=== PATIENT | female | born 2000 | race African-American/Black ===

== ENCOUNTER 2022-07-05 07:36 | Emergency (ER) | payer MEDICAID ==
[~2022-07-05] VITALS: Ht 137.2 cm; Wt 53.1 kg
[2022-07-05 08:56] LABS: BASOPHILS % 0.3 % (0.0-2.0); EOSINOPHILS % 1.5 % (0.0-5.0); HEMATOCRIT. 42.4 % (36.0-48.0); HEMOGLOBIN. 14.4 g/dL (12.0-16.0); LYMPHOCYTES % 25.5 % (20.0-50.0); MEAN CORPUSCULAR HEMOGLOBIN 30.2 pg (28.0-32.0); MEAN CORPUSCULAR VOLUME 89.2 fL (81.0-99.0); MEAN PLATELET VOLUME 7.2 fl (7.4-10.4); MONOCYTES % 4.7 % (2.0-8.0); PLATELET 441 x1000/uL (130-400); RED BLOOD CELL COUNT 4.75 mill/uL (4.2-5.4); RED CELL DISTRIBUTION WIDTH 13.4 % (11.6-14.6)
[2022-07-05 09:04] LABS: INR 1.3; PROTHROMBIN TIME 13.3 sec (9.6-11.0)
[2022-07-05 09:10] LABS: CHLORIDE 106 mEq/L (98-107)
[2022-07-05 09:13] LABS: HCG SCREEN NEGATIVE
[2022-07-05 09:28] LABS: CLARITY URINE CLEAR (CLEAR); COLOR URINE YELLOW (YELLOW); KETONES URINE NEGATIVE (NEGATIVE); LEUKOCYTE ESTERASE URINE NEGATIVE (NEGATIVE); NITRITE URINE NEGATIVE (NEGATIVE); OCCULT BLOOD URINE NEGATIVE (NEGATIVE); PH URINE 5.5 (4.5-8.0); PROTEIN URINE NEGATIVE (NEGATIVE); UROBILINOGEN URINE 0.2 E.U./dL (0.2-1.0)
[2022-07-05 09:40] VITALS: BP 120/86
[2022-07-05] MEDS ORDERED: VALA100044 PO (10:21)
[2022-07-05] MEDS ORDERED: NAPHADR LEFTEYE (10:21)
[2022-07-05] MEDS ORDERED: P50 PO (10:21)
== END 2022-07-05 10:55 | disposition home or self-care (01) ==
LOC: ER 08:07
DX: G51.0 Bell's palsy (principal); Z79.899 Other long term (current) drug therapy
CPT/HCPCS: 36415; 70450; 80053; 81003; 81025; 84703; 85025; 85610; 99284; Z7610

== ENCOUNTER 2024-03-27 08:33 | Emergency (ER) | payer MEDICAID ==
[~2024-03-27] VITALS: Ht 152.4 cm; Wt 59.0 kg
[~2024-03-27 08:33] MED LIST: NAPHADR LEFTEYE; P50 PO; VALA100044 PO
[2024-03-27 08:42] VITALS: O2SAT 99
[2024-03-27] MEDS ORDERED: ACYC200C31 MT (11:00)
[2024-03-27] MEDS ORDERED: PROP1DRO2 MT (11:00)
[2024-03-27] MEDS ORDERED: P50 MT (11:00)
[2024-03-27 11:29] VITALS: BP 119/71; PULSE 75; RESP 16; TEMP 36.44736; O2SAT 99
== END 2024-03-27 11:27 | disposition home or self-care (01) ==
LOC: ER 08:33
DX: I21.9 Acute myocardial infarction, unspecified (principal); R29.810 Facial weakness; Z79.899 Other long term (current) drug therapy
CPT/HCPCS: 99281